=== PATIENT | female | born 1955 | race Caucasian/White ===

== ENCOUNTER → 2018-09-09 | Outpatient (CLI) | payer MEDICARE ==
[~2018-09-09] MED LIST: CARAFATE1 GM/10 ML PO; HYDROCHLOROTH12.5 MG PO; LEVOFLOXACIN500 MG PO; PANTOPRAZOLE SO40 MG PO; TRIMETHOPRIM100 MG PO
--- NOTE | 2018-09-09 17:57 | Diagnostic Imaging Report ---
Exam: Abdominal film Clinical History: Calculus of kidney Comparison: KUB 06/05/2017 DISCUSSION: Frontal view of the abdomen shows a nonobstructive bowel gas pattern with moderate amount of retained stool, which partly obscures the left renal shadow. .There are no dilated, air-filled loops of bowel. No calcifications project over the renal shadows or expected course of the ureters. Stable pelvic phleboliths.No acute bone abnormality. IMPRESSION: 1. No calcifications project over the renal shadows or expected course of the ureters. The staff physician below has personally reviewed this exam on the date of dictation. Signed by: Dr. Wing Covington M.D. on 09/09/2018 5:54 PM
== END ==
LOC: RAD 16:41
PROVIDERS: ATTEND Urology
DX: N20.0 Calculus of kidney (principal)
CPT/HCPCS: 74018

== ENCOUNTER → 2019-10-26 | Outpatient (CLI) | payer MEDICARE ==
--- NOTE | 2019-10-26 15:00 | Diagnostic Imaging Report ---
Exam: KUB - 2 views Clinical History: Renal calculus. Comparison: KUB 09/09/2018. Findings: There is a 4 mm calcification overlying the right mid kidney. Bowel gas partially obscures visualization of the left kidney. There is a 7 mm calcification overlying the left mid pole kidney. No evidence of ureteral calcification. Calcified pelvic phleboliths. Nonobstructive bowel gas pattern. No evidence of free intraperitoneal air. No acute bony abnormality. Status post cholecystectomy. Impression: Possible bilateral nephrolithiasis. Signed by: Dr. Tin Perdomo MD on 10/26/2019 2:57 PM
== END ==
LOC: RAD 13:32
PROVIDERS: ATTEND Urology
DX: N20.0 Calculus of kidney (principal)
CPT/HCPCS: 74018

== ENCOUNTER → 2020-04-05 | Outpatient (CLI) | payer MEDICARE ==
--- NOTE | 2020-04-05 13:49 | Diagnostic Imaging Report ---
CT of the abdomen and pelvis. Comparison: None Clinical History: Kidney stones Technique: Helical CT scan of the abdomen and pelvis was performed. Intravenous contrast administration was not utilized. Oral contrast administration was not utilized. Coronal and sagittal reconstructions were generated from the raw data. Multiple images were submitted for interpretation. This exam was performed according to our departmental dose-optimization program which includes automated exposure control, adjustment of the mA and/or kV according to patient size Discussion: Inferior chest: Unremarkable. Liver: Unremarkable Spleen: Unremarkable Pancreas: Unremarkable Biliary tree and gallbladder: Status post cholecystectomy. Biliary tree unremarkable. Adrenal glands: Unremarkable Kidneys and ureters: Right kidney and ureter are unremarkable. Left kidney has multiple tiny calculi in the collecting system. There is one large calculus that measures approximately 9 mm. There is associated cortical thinning of this level with dystrophic calcification possibly a sequela of infection. There are additional tiny calculi in the lower pole calyces. There is no left ureteric calculus. There is no urinary bladder calculus. Vasculature: Unremarkable Lymph nodes: No lymphadenopathy Bowel: Unremarkable Pelvis: The internal genitalia unremarkable. Pelvic wall unremarkable. Peritoneum: Unremarkable Perineal compartments: unremarkable. Fluid: Absent free fluid. Bones: Degenerative changes. Body wall: Unremarkable Impression: Multiple left renal calculi as described above. Signed by: Randy Catherine MD on 04/05/2020 1:45 PM
== END ==
LOC: CT 12:48
PROVIDERS: ATTEND Urology
DX: N20.0 Calculus of kidney (principal)
CPT/HCPCS: 74176

== ENCOUNTER → 2020-05-18 | Day surgery (SDC) | payer MEDICARE, OTHER ==
[2020-05-13 12:36] LABS: BASOPHILS # (AUTO) 0.1 (0.0-0.1); BASOPHILS % 0.8 % (0.0-1.0); EOSINOPHILS # (AUTO) 0.2 (0.0-0.4); EOSINOPHILS % 3.2 % (0.0-6.0); HEMATOCRIT 42.9 % (34.2-44.1); LYMPHOCYTES # (AUTO) 1.5 (1.0-3.2); LYMPHOCYTES % 23.5 % (18.0-39.1); MEAN CORPUSCULAR HEMOGLOBIN 30.4 pg (28-32); MEAN CORPUSCULAR HGB CONC 32.6 g/dL (31-35); MEAN CORPUSCULAR VOLUME 93.3 fL (81-99); MONOCYTES # (AUTO) 0.5 (0.2-0.8); MONOCYTES % 8.2 % (4.4-11.3); PLATELET COUNT 236 x10e3/uL (140-360)
[2020-05-13 13:08] LABS: ANION GAP 13.1 mmol/L (8-16); BLOOD UREA NITROGEN 16 mg/dL (7-26); BUN/CREATININE RATIO 18 (6-25); CALCIUM 9.5 mg/dL (8.4-10.2); CARBON DIOXIDE 27 mmol/L (22-29); CHLORIDE 106 mmol/L (98-107); CREATININE, SERUM 0.87 mg/dL (0.57-1.11); EST GLOMERULAR FILTRATION RATE > 60 ML/MIN (60-); GLUCOSE 84 mg/dL (74-118); POTASSIUM 4.1 mmol/L (3.5-5.1); SODIUM 142 mmol/L (136-145)
--- NOTE | 2020-05-13 13:49 | Diagnostic Imaging Report ---
EXAMINATION: CHEST 2 VIEWS INDICATION: ^[id number] ^1218 ^PRE-OP COMPARISON: None FINDINGS: PA and lateral views TUBES and LINES: None. LUNGS: Lungs are well inflated. Lungs are clear. There is no evidence of pneumonia or pulmonary edema. PLEURA: No pleural effusion or pneumothorax. HEART AND MEDIASTINUM: The cardiomediastinal silhouette is unremarkable. BONES AND SOFT TISSUES: Mild degenerative changes of the thoracic spine. Soft tissues are unremarkable. UPPER ABDOMEN: No free air under the diaphragm. IMPRESSION: No acute thoracic abnormality. Signed by: Dr. Bonny Nash M.D. on 05/13/2020 1:46 PM
[~2020-05-18] MED LIST changes: +B&O 60MG R/S 60 MG SUPP PR ONE; +ETOMIDATE 2 MG/ML 10 ML INJ IV ONE; +FAMOTIDINE20 MG PO; +GENTAMICIN 80MG/NS 100 ML 200 ML IV ONE; +GLYCOPYRROLATE INJ 0.2 MG/ML VIAL ONE; +IOPAMIDOL 300MG/ML 50ML INFUS..BTL IV ONE; +ONDANSETRON HCL INJ 2MG/ML 2ML 2 MG/ML VIAL ONE; +PROPOFOL IV EMULSION 10 MG/ML 20 ML VIAL ONE; +SEVOFLURANE INHAL SOLN 250 ML PEN BTL ONE
[2020-05-18 09:10] VITALS: BP 108/71
--- NOTE | 2020-06-13 05:16 | Operative Report ---
DATE OF PROCEDURE: 05/18/2020 SURGEON: Teo Camacho MD PREOPERATIVE DIAGNOSES: 1. Left nephrolithiasis. 2. Urinary tract infections. POSTOPERATIVE DIAGNOSES: 1. Left nephrolithiasis. 2. Urinary tract infections. 3. Mild grade 1 cystocele. 4. Atrophic (senile) vaginitis. OPERATIONS PERFORMED: Note these were all staged procedures as part of multi-staged and multi-step process in managing the patient's urolithiasis. 1. Left-sided extracorporeal shock wave lithotripsy (separate procedure performed for left nephrolithiasis). 2. Cystourethroscopy with bilateral ureteral catheterization and retrograde ureteropyelography (separate procedure performed for urinary tract infections). 3. Interpretation of retrograde ureteropyelography. 4. Supervision of fluoroscopy, no radiologist present. 5. Pelvic examination under anesthesia. ANESTHESIA: General. COMPLICATIONS: None. CLINICAL SUMMARY: Marcie Buckley is a 65-year-old woman with nephrolithiasis and urinary tract infections. She is brought for management. She is aware of the risks of bleeding, infection, injury to adjacent structures, need for additional procedures and elected to proceed. PROCEDURE IN DETAIL: Informed consent was verified. Marcie Buckley was properly identified, taken to the operating room, placed on the lithotripsy table in supine position. Anesthesia was uneventfully begun. The patient was carefully and gently repositioned in dorsal lithotomy position with all pressure points well padded. Her genitalia were prepared and draped in usual sterile fashion. The patient's left nephrolithiasis was localized with biplanar fluoroscopy. A total of 3000 shocks were delivered with fragmentation noted. The patient was then carefully and gently repositioned in dorsal lithotomy position. All pressure points were well padded. Her genitalia were prepared and draped in usual sterile fashion. The cystoscope sheath with obturator in place was atraumatically inserted in the patient's urethra and bladder was drained. Panendoscopy revealed no suspicious mucosal lesions, no tumors, no stones, and no diverticula. Normally positioned and configured ureteral orifices were identified. A ureteral catheter was used to cannulate each ureter and retrograde ureteral pyelograms were performed. Interpretation of retrograde ureteropyelography contrast was injected in retrograde fashion bilaterally. The stones we lithotripsied were in the collecting system. Overlying that region, there is calcification with renal atrophy above it. Nevertheless, the patient did have a stone within the collecting system. There were filling defects within the collecting system corresponding the stone as well as blood clots from the lithotripsy. There was no hydronephrosis. Unobstructed drainage was observed bilaterally fluoroscopically. The patient's bladder was drained. Cystoscope was withdrawn. Pelvic examination revealed a grade 1 cystocele with atrophic vaginitis. No abnormal palpable pelvic masses could be appreciated. The patient was then uneventfully reversed from anesthesia and taken to recovery room in stable condition. There were no complications to the procedure. She tolerated the procedure well. Explicit postop instructions were given. We will follow the patient up in the office. MD LAVERN Ambrose/BRENDA /[id number]
== END | disposition home or self-care (01) ==
LOC: OR 05:28
PROVIDERS: ATTEND Urology
DX: N20.0 Calculus of kidney (principal); N39.0 Urinary tract infection, site not specified; N81.10 Cystocele, unspecified; N95.2 Postmenopausal atrophic vaginitis; N26.1 Atrophy of kidney (terminal); N28.89 Other specified disorders of kidney and ureter; K21.9 Gastro-esophageal reflux disease without esophagitis; Z01.810 Encounter for preprocedural cardiovascular examination; Z01.812 Encounter for preprocedural laboratory examination; Z01.818 Encounter for other preprocedural examination; Z11.59 Encounter for screening for other viral diseases
CPT/HCPCS: 36415; 50590; 71046; 80048; 83970; 84550; 85025; 93005; C1758; J1580; J2405; J2704; Q9967; U0002

== ENCOUNTER → 2020-06-30 | Outpatient (CLI) | payer MEDICARE ==
[~2020-06-30] MED LIST changes: -B&O 60MG R/S 60 MG SUPP PR ONE; -ETOMIDATE 2 MG/ML 10 ML INJ IV ONE; +FUROSEMIDE INJ 10 MG/ML 4 ML VIAL ONE; -GENTAMICIN 80MG/NS 100 ML 200 ML IV ONE; -GLYCOPYRROLATE INJ 0.2 MG/ML VIAL ONE; -IOPAMIDOL 300MG/ML 50ML INFUS..BTL IV ONE; -ONDANSETRON HCL INJ 2MG/ML 2ML 2 MG/ML VIAL ONE; -PROPOFOL IV EMULSION 10 MG/ML 20 ML VIAL ONE; -SEVOFLURANE INHAL SOLN 250 ML PEN BTL ONE
--- NOTE | 2020-07-01 08:10 | Diagnostic Imaging Report ---
Renal Scan with Lasix Washout Clinical information: Unspecified hydronephrosis Technique: Following intravenous administration of 10 mCi of Tc-99m MAG3, dynamic images of the kidneys in the posterior projection were obtained through 40 minutes. Lasix 40 mg was administered intravenously at 10 minutes post injection of the tracer. Report: Left kidney: Perfusion of the left kidney is prompt. The kidney has a reniform shape with smooth contours but appears overall slightly reduced in size. Extraction of tracer from the blood pool is very mildly decreased. Clearance of tracer from the renal parenchyma is mildly prolonged. The pelvicalyceal system is not dilated. Physiologic pooling of tracer is seen within the pelvicalyceal system. Drainage of tracer from the pelvicalyceal system is prompt and adequate prior to administration of Lasix. Washout of tracer from the pelvicalyceal system following administration of Lasix is rapid with a T-1/2 of 10 minutes (normal less than 15 minutes). No significant stasis of tracer is seen within the left ureter. Right kidney: Perfusion to the right kidney is prompt. The right kidney has a reniform shape with smooth contours but overall appears slightly decreased in size. Extraction of tracer by the renal parenchyma is normal. Clearance of tracer from the renal parenchyma is mildly prolonged. The pelvicalyceal system is not dilated. Physiologic pooling of tracer is seen within the pelvicalyceal system. Drainage of tracer from the pelvicalyceal system is prompt and adequate prior to administration of Lasix. No significant stasis of tracer is seen within the right ureter. Differential renal function: The left kidney contributes 48% of total renal function and the right kidney contributes 52% (normal 43-57%). Impression: 1. Mild medical renal disease may be present in the left kidney. No hydronephrosis is present. No physiologically significant obstruction of the renal collecting system is present. 2. Mild medical renal disease may be present in the right kidney. No hydronephrosis is present. No physiologically significant obstruction of the renal collecting system is present. 3. The differential renal function is preserved. Signed by: Dr. Edna Heredia M.D. on 07/01/2020 8:07 AM
== END ==
LOC: NM 12:43
PROVIDERS: ATTEND Urology
DX: N13.30 Unspecified hydronephrosis (principal)
CPT/HCPCS: 78708; A9562; J1940

== ENCOUNTER 2021-07-16 14:02 | Emergency (ER) | payer MEDICARE, OTHER ==
[~2021-07-16] VITALS: Ht 162.6 cm; Wt 65.4 kg
[~2021-07-16 14:02] MED LIST changes: -FUROSEMIDE INJ 10 MG/ML 4 ML VIAL ONE
[2021-07-16] MEDS ORDERED: METOPROLOL TART25 MG PO (14:37)
[2021-07-16] MEDS ORDERED: LEVOFLOXACIN250 MG PO (16:19)
== END 2021-07-16 16:30 | disposition home or self-care (01) ==
LOC: FSED 14:20
DX: R39.15 Urgency of urination (principal); I10 Essential (primary) hypertension; K21.9 Gastro-esophageal reflux disease without esophagitis; Z87.442 Personal history of urinary calculi
CPT/HCPCS: 80053; 81003; 85025; 87086; 99283

== ENCOUNTER → 2021-08-29 | Outpatient (CLI) | payer MEDICARE ==
[~2021-08-29] MED LIST changes: +LEVOFLOXACIN250 MG PO; +METOPROLOL TART25 MG PO
== END ==
LOC: RAD 14:05
PROVIDERS: ATTEND Urology
DX: N20.0 Calculus of kidney (principal)
CPT/HCPCS: 74018

== ENCOUNTER → 2021-10-27 | Day surgery (SDC) | payer MEDICARE ==
[2021-10-26 10:26] LABS: BASOPHILS % 0.7 % (0.0-1.0); EOSINOPHILS # (AUTO) 0.2 (0.0-0.4); EOSINOPHILS % 4.5 % (0.0-6.0); HEMATOCRIT 43.2 % (34.2-44.1); HEMOGLOBIN 14.3 g/dL (12.0-16.0); LYMPHOCYTES # (AUTO) 1.4 (1.0-3.2); LYMPHOCYTES % 26.4 % (18.0-39.1); MEAN CORPUSCULAR HEMOGLOBIN 31.4 pg (28-32); MEAN CORPUSCULAR HGB CONC 33.1 g/dL (31-35); MEAN CORPUSCULAR VOLUME 94.7 fL (81-99); MONOCYTES # (AUTO) 0.4 (0.2-0.8); MONOCYTES % 7.5 % (4.4-11.3); NEUTROPHILS # (AUTO) 3.2 (2.1-6.9); NEUTROPHILS % 60.7 % (38.7-80.0); PLATELET COUNT 254 x10e3/uL (140-360); RED BLOOD COUNT 4.56 x10e6/uL (3.6-5.1); RED CELL DISTRIBUTION WIDTH 12.2 % (11.7-14.4)
[2021-10-26 10:49] LABS: CALCIUM 9.2 mg/dL (8.4-10.2); CREATININE, SERUM 0.85 mg/dL (0.57-1.11)
[~2021-10-27] MED LIST changes: +BELLADONNA/OPIUM 30 MG SUPP RC ONE; +DEXAMETHASONE SOD PHOS INJ 4 MG/ML SDV ONE; +ETOMIDATE 2 MG/ML 10 ML INJ IV ONE; +GLYCOPYRROLATE INJ 0.2 MG/ML VIAL ONE; +IOPAMIDOL 300MG/ML 50ML INFUS..BTL IV ONE; +KETOROLAC TROMETHAMINE 30 MG/ML VIAL ONE; +LIDOCAINE HCL 2% LOCAL INJ 5 ML SDV VIAL INJ ONE; +MIDAZOLAM HCL 2 MG/2 ML VIAL ONE; +ONDANSETRON HCL INJ 2MG/ML 2ML 2 MG/ML VIAL ONE; +POVIDONE IODINE 0.05% 0.05 % ML PO ONE; +PROPOFOL IV EMULSION 10 MG/ML 20 ML VIAL ONE; +SEVOFLURANE INHAL SOLN 250 ML PEN BTL ONE
[2021-10-27] MEDS: GENTAMICIN 80MG/NS 100 ML 200 ML IV ONE (07:49)
[2021-10-27 11:20] VITALS: BP 135/78
== END | disposition home or self-care (01) ==
LOC: OR 06:58
PROVIDERS: ATTEND Urology
DX: N20.0 Calculus of kidney (principal); N39.0 Urinary tract infection, site not specified; N81.6 Rectocele; N95.2 Postmenopausal atrophic vaginitis; N32.89 Other specified disorders of bladder; N35.92 Unspecified urethral stricture, female; N32.81 Overactive bladder; N39.41 Urge incontinence; R35.1 Nocturia; N81.89 Other female genital prolapse; N20.1 Calculus of ureter; N13.30 Unspecified hydronephrosis; N26.9 Renal sclerosis, unspecified; I49.3 Ventricular premature depolarization; K21.9 Gastro-esophageal reflux disease without esophagitis; K44.9 Diaphragmatic hernia without obstruction or gangrene; K28.9 Gastrojejunal ulcer, unspecified as acute or chronic, without hemorrhage or perforation; F41.9 Anxiety disorder, unspecified; Z01.810 Encounter for preprocedural cardiovascular examination; Z01.812 Encounter for preprocedural laboratory examination; Z01.818 Encounter for other preprocedural examination; Z20.822 Contact with and (suspected) exposure to COVID-19; Z86.16 Personal history of COVID-19
CPT/HCPCS: 36415; 50590; 71046; 74018; 80048; 83970; 84550; 85025; 87086; 93005; C1769; J1100; J1580; J1885; J2001; J2250; J2405; U0002

== ENCOUNTER → 2022-05-03 | Outpatient (CLI) | payer MEDICARE ==
[~2022-05-03] MED LIST changes: -BELLADONNA/OPIUM 30 MG SUPP RC ONE; -DEXAMETHASONE SOD PHOS INJ 4 MG/ML SDV ONE; -ETOMIDATE 2 MG/ML 10 ML INJ IV ONE; -GLYCOPYRROLATE INJ 0.2 MG/ML VIAL ONE; -IOPAMIDOL 300MG/ML 50ML INFUS..BTL IV ONE; -KETOROLAC TROMETHAMINE 30 MG/ML VIAL ONE; -LIDOCAINE HCL 2% LOCAL INJ 5 ML SDV VIAL INJ ONE; -MIDAZOLAM HCL 2 MG/2 ML VIAL ONE; -ONDANSETRON HCL INJ 2MG/ML 2ML 2 MG/ML VIAL ONE; -POVIDONE IODINE 0.05% 0.05 % ML PO ONE; -PROPOFOL IV EMULSION 10 MG/ML 20 ML VIAL ONE; -SEVOFLURANE INHAL SOLN 250 ML PEN BTL ONE
== END ==
LOC: DX 14:17
PROVIDERS: ATTEND Urology
DX: N20.0 Calculus of kidney (principal)
CPT/HCPCS: 74018

== ENCOUNTER → 2022-06-26 | Outpatient (CLI) | payer MEDICARE | LOC: CT 09:51 | PROVIDERS: ATTEND Urology | DX: N20.0 Calculus of kidney (principal) | CPT/HCPCS: 74176 ==

== ENCOUNTER → 2022-08-10 | Day surgery (SDC) | payer MEDICARE ==
[2022-08-09 10:03] LABS: BASOPHILS % 0.7 % (0.0-1.0); EOSINOPHILS # (AUTO) 0.2 (0.0-0.4); HEMATOCRIT 42.4 % (34.2-44.1); HEMOGLOBIN 14.5 g/dL (12.0-16.0); LYMPHOCYTES # (AUTO) 1.4 (1.0-3.2); LYMPHOCYTES % 24.7 % (18.0-39.1); MEAN CORPUSCULAR HEMOGLOBIN 31.4 pg (28-32); MEAN CORPUSCULAR HGB CONC 34.2 g/dL (31-35); MEAN CORPUSCULAR VOLUME 91.8 fL (81-99); MONOCYTES # (AUTO) 0.5 (0.2-0.8); NEUTROPHILS # (AUTO) 3.6 (2.1-6.9); NEUTROPHILS % 62.3 % (38.7-80.0); PLATELET COUNT 277 x10e3/uL (140-360); RED BLOOD COUNT 4.62 x10e6/uL (3.6-5.1); RED CELL DISTRIBUTION WIDTH 12.4 % (11.7-14.4)
[2022-08-09 10:36] LABS: ANION GAP 12.2 mmol/L (8-16); CALCIUM 9.7 mg/dL (8.4-10.2); CREATININE, SERUM 0.77 mg/dL (0.57-1.11); POTASSIUM 4.2 mmol/L (3.5-5.1)
[~2022-08-10] MED LIST changes: +B&O 60MG R/S 60 MG SUPP PR ONE; +DEXAMETHASONE SOD PHOS INJ 4 MG/ML SDV ONE; +FENTANYL CITRATE/PF 100MCG/2 ML INJ ONE; +GENTAMICIN 80MG/NS 100 ML 200 ML IV ONE; +IOPAMIDOL 300MG/ML 50ML INFUS..BTL IV ONE; +LIDOCAINE HCL 2% LOCAL INJ 5 ML SDV VIAL INJ ONE; +MIDAZOLAM HCL 2 MG/2 ML VIAL ONE; +ONDANSETRON HCL INJ 2MG/ML 2ML 2 MG/ML VIAL ONE; +POVIDONE IODINE 0.05% 0.05 % ML PO ONE; +PROPOFOL IV EMULSION 10 MG/ML 20 ML VIAL ONE; +SEVOFLURANE INHAL SOLN 250 ML PEN BTL ONE
[2022-08-10 13:45] VITALS: BP 135/72
== END | disposition home or self-care (01) ==
LOC: OR 08:44
PROVIDERS: ATTEND Urology
DX: N20.0 Calculus of kidney (principal); N39.0 Urinary tract infection, site not specified; N32.89 Other specified disorders of bladder; N81.10 Cystocele, unspecified; N81.6 Rectocele; N95.2 Postmenopausal atrophic vaginitis; Z96.0 Presence of urogenital implants; I10 Essential (primary) hypertension; Z01.812 Encounter for preprocedural laboratory examination; Z01.818 Encounter for other preprocedural examination; Z20.822 Contact with and (suspected) exposure to COVID-19; Z79.899 Other long term (current) drug therapy
CPT/HCPCS: 0223U; 36415; 50590; 74018; 80048; 83970; 84550; 85025; 87086; C1758; J1100; J1580; J2001; J2250; J2405; J2704; J3010; Q9967

== ENCOUNTER → 2022-09-12 | Outpatient (CLI) | payer MEDICARE ==
[~2022-09-12] MED LIST changes: -B&O 60MG R/S 60 MG SUPP PR ONE; -DEXAMETHASONE SOD PHOS INJ 4 MG/ML SDV ONE; -FENTANYL CITRATE/PF 100MCG/2 ML INJ ONE; -GENTAMICIN 80MG/NS 100 ML 200 ML IV ONE; -IOPAMIDOL 300MG/ML 50ML INFUS..BTL IV ONE; -LIDOCAINE HCL 2% LOCAL INJ 5 ML SDV VIAL INJ ONE; -MIDAZOLAM HCL 2 MG/2 ML VIAL ONE; -ONDANSETRON HCL INJ 2MG/ML 2ML 2 MG/ML VIAL ONE; -POVIDONE IODINE 0.05% 0.05 % ML PO ONE; -PROPOFOL IV EMULSION 10 MG/ML 20 ML VIAL ONE; -SEVOFLURANE INHAL SOLN 250 ML PEN BTL ONE
== END ==
LOC: RAD 13:41
PROVIDERS: ATTEND Urology
DX: N20.0 Calculus of kidney (principal)
CPT/HCPCS: 74018

== ENCOUNTER → 2024-07-03 | Outpatient (REF) | payer MEDICARE ==
[~2024-07-03] MED LIST changes: +IOPAMIDOL 370 MG/ML 100 ML INFUS..BTL INJ ONE; +SODIUM CHLORIDE 0.9% 250ML 250 ML ONE
[2024-07-03 14:56] LABS: CREATININE, SERUM 0.93 mg/dL (0.57-1.11)
== END ==
LOC: CT 13:46
PROVIDERS: ATTEND Urology
DX: R31.21 Asymptomatic microscopic hematuria (principal); N20.0 Calculus of kidney
CPT/HCPCS: 36415; 74178; 82565; 84520; J7050; Q9967

== ENCOUNTER → 2024-09-25 | Day surgery (SDC) | payer MEDICARE ==
[2024-09-24 12:26] LABS: BASOPHILS % 0.7 % (0.0-1.0); EOSINOPHILS # (AUTO) 0.2 (0.0-0.4); EOSINOPHILS % 3.6 % (0.0-6.0); HEMATOCRIT 44.2 % (34.2-44.1); HEMOGLOBIN 14.1 g/dL (12.0-16.0); LYMPHOCYTES # (AUTO) 1.4 (1.0-3.2); LYMPHOCYTES % 26.4 % (18.0-39.1); MEAN CORPUSCULAR HEMOGLOBIN 31.8 pg (28-32); MEAN CORPUSCULAR HGB CONC 31.9 g/dL (31-35); MEAN CORPUSCULAR VOLUME 99.5 fL (81-99); MONOCYTES # (AUTO) 0.5 (0.2-0.8); MONOCYTES % 9.7 % (4.4-11.3); NEUTROPHILS # (AUTO) 3.2 (2.1-6.9); NEUTROPHILS % 59.4 % (38.7-80.0); PLATELET COUNT 231 x10e3/uL (140-360); RED BLOOD COUNT 4.44 x10e6/uL (3.6-5.1); RED CELL DISTRIBUTION WIDTH 12.3 % (11.7-14.4); WHITE BLOOD COUNT 5.35 x10e3/uL (4.8-10.8)
[2024-09-24 13:03] LABS: ANION GAP 15.1 mmol/L (8-16); CALCIUM 9.5 mg/dL (8.4-10.2); CREATININE, SERUM 0.83 mg/dL (0.57-1.11); POTASSIUM 4.1 mmol/L (3.5-5.1)
[~2024-09-25] MED LIST changes: +AZO D-MANNOSE500 MG PO; +B12 ACTIVE1000 MCG PO; +CEFTRIAXONE 1 GM VIAL ONE; +DEXAMETHASONE SOD PHOS INJ 4 MG/ML SDV ONE; +FENTANYL CITRATE/PF 100MCG/2 ML INJ ONE; +HEALTHY HEART1 EACH PO; -IOPAMIDOL 370 MG/ML 100 ML INFUS..BTL INJ ONE; +IOPAMIDOL 610MG/1ML 300 MG/ML VIAL IV ONE; +LACTATED RINGER'S 1,000 ML ONE; +LIDOCAINE HCL 2% LOCAL INJ 5 ML SDV VIAL INJ ONE; +MAGNESIUM OXID400 MG PO; +METOCLOPRAMIDE HCL 10 MG/2ML VIAL ONE; +ONDANSETRON HCL INJ 2MG/ML 2ML 2 MG/ML VIAL ONE; +PROPOFOL IV EMULSION 10 MG/ML 20 ML VIAL ONE; +SCOPOLAMINE 1 MG PATCH ONE; -SODIUM CHLORIDE 0.9% 250ML 250 ML ONE
[2024-09-25 09:15] LABS: CALCIUM 9.2 mg/dL (8.7-10.3)
[2024-09-25 09:41] VITALS: TEMP 97.2
[2024-09-25 10:49] VITALS: BP 126/75; PULSE 62; RESP 16; O2SAT 99
== END | disposition home or self-care (01) ==
LOC: OR 08:00
PROVIDERS: ATTEND Urology
DX: N20.0 Calculus of kidney (principal); N39.0 Urinary tract infection, site not specified; N81.10 Cystocele, unspecified; N81.6 Rectocele; N95.2 Postmenopausal atrophic vaginitis; N32.89 Other specified disorders of bladder; I10 Essential (primary) hypertension; K21.9 Gastro-esophageal reflux disease without esophagitis; K44.9 Diaphragmatic hernia without obstruction or gangrene; Z01.810 Encounter for preprocedural cardiovascular examination; Z01.812 Encounter for preprocedural laboratory examination; Z01.818 Encounter for other preprocedural examination; Z79.899 Other long term (current) drug therapy
CPT/HCPCS: 36415; 50590; 71046; 74018; 80048; 83970; 84550; 85025; 87086; 93005; C1758; C1769; J0696; J1100; J2003; J2405; J2704; J2765; J3010; J7121; Q9967

== ENCOUNTER → 2025-02-05 | Outpatient (REF) | payer MEDICARE ==
[~2025-02-05] MED LIST changes: -CEFTRIAXONE 1 GM VIAL ONE; -DEXAMETHASONE SOD PHOS INJ 4 MG/ML SDV ONE; -FENTANYL CITRATE/PF 100MCG/2 ML INJ ONE; -IOPAMIDOL 610MG/1ML 300 MG/ML VIAL IV ONE; -LACTATED RINGER'S 1,000 ML ONE; -LIDOCAINE HCL 2% LOCAL INJ 5 ML SDV VIAL INJ ONE; -METOCLOPRAMIDE HCL 10 MG/2ML VIAL ONE; -ONDANSETRON HCL INJ 2MG/ML 2ML 2 MG/ML VIAL ONE; -PROPOFOL IV EMULSION 10 MG/ML 20 ML VIAL ONE; -SCOPOLAMINE 1 MG PATCH ONE
== END ==
LOC: RAD 10:54
PROVIDERS: ATTEND Urology
DX: N20.0 Calculus of kidney (principal)
CPT/HCPCS: 74018

== ENCOUNTER 2025-06-29 17:58 | Emergency (ER) | payer MEDICARE ==
[~2025-06-29] VITALS: Ht 160 cm; Wt 64.9 kg
[2025-06-29 18:50] VITALS: PULSE 86; RESP 16; TEMP 99.1; O2SAT 98
[2025-06-29] MEDS: SODIUM CHLORIDE 0.9% 1000ML 1,000 ML IV SCH (20:16)
[2025-06-29 20:18] VITALS: BP 130/65; PULSE 89; RESP 16; TEMP 97.6
== END 2025-06-29 20:22 | disposition home or self-care (01) ==
LOC: FSED 18:50
DX: R50.9 Fever, unspecified (principal); R53.81 Other malaise; R10.9 Unspecified abdominal pain; I10 Essential (primary) hypertension; K21.9 Gastro-esophageal reflux disease without esophagitis; Z87.442 Personal history of urinary calculi
CPT/HCPCS: 74176; 80053; 81003; 85025; 99284; J7030

== ENCOUNTER 2025-07-07 20:57 | Emergency (ER) | payer MEDICARE ==
[~2025-07-07] VITALS: Ht 160 cm; Wt 64.9 kg
[~2025-07-07 20:57] MED LIST changes: -ACETAMINOPHEN 1000 MG/100 ML 100 ML IV ONE; -CEPHALEXIN500 MG PO; -CIPRO500 MG PO; -DEXAMETHASONE SOD PHOS INJ 4 MG/ML SDV ONE; -DIPHENHYDRAMINE HCL INJ 50 MG/ML VIAL ONE; -FAMOTIDINE 20 MG/2 ML VIAL IV ONE; -FENTANYL CITRATE/PF 100MCG/2 ML INJ ONE; -GENTAMICIN 80MG/NS 100 ML 200 ML IV ONE; -HYDROCODONE/APAP 7.5MG-325MG 1 EA TAB ONE; -LACTATED RINGER'S 1,000 ML ONE; -LIDOCAINE HCL 2% LOCAL INJ 5 ML SDV VIAL INJ ONE; -ONDANSETRON HCL INJ 2MG/ML 2ML 2 MG/ML VIAL ONE; -PHENAZOPYRIDINE HCL 100 MG TAB ONE; -PROPOFOL IV EMULSION 10 MG/ML 20 ML VIAL ONE; -SEVOFLURANE INHAL SOLN 250 ML PEN BTL ONE
[2025-07-07 21:12] VITALS: TEMP 98.6
[2025-07-07 21:53] VITALS: PULSE 83; RESP 16; O2SAT 99
[2025-07-07] MEDS ORDERED: CIPRO500 MG PO (21:57)
[2025-07-07] MEDS ORDERED: CEPHALEXIN500 MG PO (22:19)
[2025-07-07 22:32] LABS: LEUKOCYTE ESTERASE ,URINE NEGATIVE (NEGATIVE); PROTEIN,URINE DIPSTICK >=300 (NEGATIVE); URINE UROBILINOGEN 1 mg/dL (0.2 - 1)
[2025-07-07 22:44] LABS: EPITHELIAL CELLS,URINE FEW /LPF
== END 2025-07-07 22:05 | disposition home or self-care (01) ==
LOC: ER 21:16
DX: R33.9 Retention of urine, unspecified (principal); N81.10 Cystocele, unspecified; I10 Essential (primary) hypertension; Z87.442 Personal history of urinary calculi; K21.9 Gastro-esophageal reflux disease without esophagitis
CPT/HCPCS: 51700; 81001; 99284

== ENCOUNTER → 2025-07-07 | Day surgery (SDC) | payer MEDICARE ==
[2025-07-06 11:50] LABS: BASOPHILS % 0.4 % (0.0-1.0); EOSINOPHILS % 1.1 % (0.0-6.0); LYMPHOCYTES % 26.8 % (18.0-39.1); MONOCYTES % 8.0 % (4.4-11.3); NEUTROPHILS % 63.5 % (38.7-80.0); RED CELL DISTRIBUTION WIDTH 12.5 % (11.7-14.4)
[2025-07-06 12:19] LABS: EST GLOMERULAR FILTRATION RATE 63.0 ML/MIN (>=60)
[~2025-07-07] MED LIST changes: +ACETAMINOPHEN 1000 MG/100 ML 100 ML IV ONE; +CEPHALEXIN500 MG PO; +CIPRO500 MG PO; +DEXAMETHASONE SOD PHOS INJ 4 MG/ML SDV ONE; +DIPHENHYDRAMINE HCL INJ 50 MG/ML VIAL ONE; +FAMOTIDINE 20 MG/2 ML VIAL IV ONE; +FENTANYL CITRATE/PF 100MCG/2 ML INJ ONE; +GENTAMICIN 80MG/NS 100 ML 200 ML IV ONE; +HYDROCODONE/APAP 7.5MG-325MG 1 EA TAB ONE; +LACTATED RINGER'S 1,000 ML ONE; +LIDOCAINE HCL 2% LOCAL INJ 5 ML SDV VIAL INJ ONE; +ONDANSETRON HCL INJ 2MG/ML 2ML 2 MG/ML VIAL ONE; +PHENAZOPYRIDINE HCL 100 MG TAB ONE; +PROPOFOL IV EMULSION 10 MG/ML 20 ML VIAL ONE; +SEVOFLURANE INHAL SOLN 250 ML PEN BTL ONE
[2025-07-07] MEDS: PHENAZOPYRIDINE HCL 100 MG TAB ONE (10:30)
[2025-07-07] MEDS: ACETAMINOPHEN 1000 MG/100 ML IV ONE (10:55)
[2025-07-07 12:10] VITALS: BP 140/75; PULSE 67; RESP 16; O2SAT 99
== END | disposition home or self-care (01) ==
LOC: OR 06:30
PROVIDERS: ATTEND Urology
DX: N20.0 Calculus of kidney (principal); N39.0 Urinary tract infection, site not specified; N81.2 Incomplete uterovaginal prolapse; N95.2 Postmenopausal atrophic vaginitis; N28.89 Other specified disorders of kidney and ureter; N32.89 Other specified disorders of bladder; I10 Essential (primary) hypertension; E78.5 Hyperlipidemia, unspecified; K21.9 Gastro-esophageal reflux disease without esophagitis; K44.9 Diaphragmatic hernia without obstruction or gangrene; Z88.1 Allergy status to other antibiotic agents; Z91.041 Radiographic dye allergy status; Z01.812 Encounter for preprocedural laboratory examination; Z79.899 Other long term (current) drug therapy; Z86.79 Personal history of other diseases of the circulatory system
CPT/HCPCS: 36415; 52332; 52346; 74420; 80048; 83970; 84550; 85025; 87086; 88300; C1758; C1766; C1769; C2617; J0131; J1100; J1200; J1308; J1580; J2003; J2405; J2704; J3010; J7121

== ENCOUNTER → 2025-08-09 | Day surgery (SDC) | payer MEDICARE ==
[2025-08-05 12:50] LABS: BASOPHILS % 1.1 % (0.0-1.0); EOSINOPHILS % 4.4 % (0.0-6.0); LYMPHOCYTES % 27.6 % (18.0-39.1); MONOCYTES % 9.0 % (4.4-11.3); NEUTROPHILS % 57.7 % (38.7-80.0); RED CELL DISTRIBUTION WIDTH 12.9 % (11.7-14.4)
[2025-08-05 13:17] LABS: EST GLOMERULAR FILTRATION RATE 76.0 ML/MIN (>=60)
[~2025-08-09] MED LIST changes: +ACETAMINOPHEN 1000 MG/100 ML 100 ML IV ONE; +CEPHALEXIN500 MG PO; +CIPRO500 MG PO; +DEXAMETHASONE SOD PHOS INJ 4 MG/ML SDV ONE; +DIPHENHYDRAMINE HCL INJ 50 MG/ML VIAL ONE; +EPHEDRINE SULFATE INJ 50 MG/ML VIAL ONE; +FAMOTIDINE 20 MG/2 ML VIAL IV ONE; +FENTANYL CITRATE/PF 100MCG/2 ML INJ ONE; +LIDOCAINE HCL 2% LOCAL INJ 5 ML SDV VIAL INJ ONE; +MACROBID 100 M100 MG PO; +METOCLOPRAMIDE HCL 10 MG/2ML VIAL ONE; +ONDANSETRON HCL INJ 2MG/ML 2ML 2 MG/ML VIAL ONE; +PROPOFOL IV EMULSION 10 MG/ML 20 ML VIAL ONE; +SEVOFLURANE INHAL SOLN 250 ML PEN BTL ONE
[2025-08-09] MEDS: GENTAMICIN 80MG/NS 100 ML 200 ML IV ONE (05:59)
[2025-08-09] MEDS: LACTATED RINGER'S 1,000 ML ONE (05:59)
[2025-08-09] MEDS: Ampicillin INJ 1 GM Vial ONE (05:59)
[2025-08-09 08:08] VITALS: TEMP 97.6
[2025-08-09] MEDS: PHENAZOPYRIDINE HCL 100 MG TAB ONE (08:40)
[2025-08-09 09:00] VITALS: BP 115/66; PULSE 67; RESP 16; O2SAT 98
== END | disposition home or self-care (01) ==
LOC: OR 05:24
PROVIDERS: ATTEND Urology
DX: N20.0 Calculus of kidney (principal); Z46.6 Encounter for fitting and adjustment of urinary device; N28.89 Other specified disorders of kidney and ureter; N35.92 Unspecified urethral stricture, female; R35.1 Nocturia; N32.81 Overactive bladder; N39.41 Urge incontinence; N81.2 Incomplete uterovaginal prolapse; N95.2 Postmenopausal atrophic vaginitis; N32.89 Other specified disorders of bladder; E78.5 Hyperlipidemia, unspecified; K21.9 Gastro-esophageal reflux disease without esophagitis; K44.9 Diaphragmatic hernia without obstruction or gangrene; Z88.2 Allergy status to sulfonamides; Z91.041 Radiographic dye allergy status; Z01.812 Encounter for preprocedural laboratory examination; Z01.818 Encounter for other preprocedural examination; Z79.899 Other long term (current) drug therapy; Z86.16 Personal history of COVID-19
CPT/HCPCS: 36415; 52352; 74018; 74420; 80048; 84550; 85025; 87086; 88300; C1758; J0131; J1100; J1200; J1308; J1580; J2003; J2405; J2704; J2765; J3010; J7121